=== PATIENT | female | born 1965 | race Caucasian/White ===

== ENCOUNTER 2024-06-05 12:26 | Day surgery (SDC) | payer MEDICARE, BC ==
[~2024-06-05] VITALS: Ht 147.3 cm; Wt 46.6 kg
[~2024-06-05 12:26] MED LIST: COZAAR100 MG PO; LOPRESSOR100 MG PO; LR 1,000 ML IV SCH; Ondansetron 4 MG/2 ML VIAL IV PRN; PRIL40 PO
[2024-06-05 13:14] VITALS: BP 190/92; PULSE 88; TEMP 98.2
[2024-06-05] MEDS ORDERED: Lidocaine PF 2% (20 MG/ML) 5 ML VIAL ONE (13:52)
[2024-06-05 14:45] VITALS: BP 128/61; PULSE 59; TEMP 97.5
[2024-06-05 15:00] VITALS: BP 137/75; PULSE 65; TEMP 97.4
[2024-06-05 15:15] VITALS: BP 137/76; PULSE 67; TEMP 97.4
--- NOTE | 2024-06-05 15:41 | NUR ---
1445- PT RETURNS FROM ENDO PROCEDURE VIA CART AND RN ASSIST TO GI [facility] 4. PT AMBULATES FROM THE CART OT RECLINER WITH RN ASSIST. MONITORS ON AND ALARMS SET. CALL LIGHT WITHIN REACH. REPORT RECIEVED FROM ENDO RN. PT SLIGHTLY LETHARGIC. VS OBTAINED. DENIES NAUSEA OR PAIN. REQUESTING APPLE JUICE TO DRINK. 1500- PT LESS LETHARGIC. EATING AND DRINKING WELL. NO COMPLICATIONS NOTED. 1522- PT IV REMOVED. 1535- DISCHARGE INSTRUCTIONS GIVEN TO PT. ALL QUESTIONS ANSWERED IN FULL. 1540- PT TRANSFERRED OUT OF [facility] VIA WHEELCHAIR TO PRIVATE VEHICLE DRIVEN BY PT MOTHER.
== END 2024-06-05 15:40 ==
LOC: SDCO 12:26
DX: K22.2 Esophageal obstruction (principal); K22.70 Barrett's esophagus without dysplasia; K44.9 Diaphragmatic hernia without obstruction or gangrene; K21.9 Gastro-esophageal reflux disease without esophagitis; Z79.899 Other long term (current) drug therapy
CPT/HCPCS: C1726; J2704; J7120

== ENCOUNTER 2024-06-19 13:03 | Day surgery (SDC) | payer MEDICARE, BC ==
[~2024-06-19] VITALS: Ht 149.9 cm; Wt 46.4 kg
[2024-06-19 13:27] VITALS: BP 177/89; PULSE 99; TEMP 97
--- NOTE | 2024-06-19 13:51 | NUR ---
The patient ambulated back to [facility] independently using a steady gait and appeared to tolerate the activity well. Vital signs obtained. Consent signed. 20G IV started in right hand with one stick, LR infusing without difficulty. Assessment completed. Home medications reconcilled. Mother at bedside. Warm blankets provided. Denies any further needs at this time.
[2024-06-19] MEDS ORDERED: Lidocaine PF 2% (20 MG/ML) 5 ML VIAL ONE (14:18)
[2024-06-19] MEDS ORDERED: Triamcinolone 40 MG/ML 1 ML VIAL IJ ONE (14:35)
[2024-06-19 14:55] VITALS: BP 134/57; PULSE 83; TEMP 97.1
[2024-06-19 15:10] VITALS: BP 124/74; PULSE 72
--- NOTE | 2024-06-19 15:36 | NUR ---
1455- Pt returns from procedure to [facility] bay 5, via cart. Assisted to recliner chair with 2 staff, gait steady. VSS, monitors applied. IV fluids infusing through right hand without issue. Family at bedside. Report received from THERESA Agrawal. Water and crackers given per request. 1510- Discharge instructions and education given to patient and mother. Questions answered 1514- Pt up and getting dressed. IV site removed. 1520- Dr. Blair in room to speak with patient and family. 1535- Pt discharges to mothers vehicle via w/c, escorted by THERESA Agrawal. Denies any compalints.
== END 2024-06-19 15:35 | disposition home or self-care (01) ==
LOC: SDCO 13:03
DX: K22.2 Esophageal obstruction (principal); K44.9 Diaphragmatic hernia without obstruction or gangrene; Z79.899 Other long term (current) drug therapy
CPT/HCPCS: C1726; J2704; J3301; J7120

== ENCOUNTER 2024-07-24 12:39 | Day surgery (SDC) | payer MEDICARE, BC ==
[~2024-07-24] VITALS: Ht 147.3 cm; Wt 47.5 kg
[2024-07-24 13:24] VITALS: BP 190/93; PULSE 93; TEMP 98.3
[2024-07-24] MEDS ORDERED: Lidocaine PF 2% (20 MG/ML) 5 ML VIAL ONE (13:53)
[2024-07-24 14:30] VITALS: BP 1551/69; PULSE 84; TEMP 98.1
[2024-07-24 14:45] VITALS: BP 146/68; PULSE 76
--- NOTE | 2024-07-24 15:07 | NUR ---
1430 RETURNS TO ROOM 3 PER CART. AWAKE, ALERT. RESP UNLABORED. AMBULATES TO RECLINER WITH STANDBY ASSIST. DENIES DISCOMFORT OR DYSPHAGIA. VITAL SIGNS OBTAINED. CALL LIGHT AT SIDE. MOTHER IN ROOM. 1445 TOLERATES PO JUICE AND SALTINE CRACKERS WITHOUT NAUSEA. SWALLOWS WITHOUT DIFFICULTY. DISCHARGE INSTRUCTIONS REVIEWED. PATIENT AND MOTHER VERBALIZE UNDERSTANDING. COPY PROVIDED IN DISCHARGE FOLDER. 0605 DR BARTLETT HERE TO VISIT WITH PATIENT.
== END 2024-07-24 15:07 | disposition home or self-care (01) ==
LOC: SDCO 12:39
DX: K22.2 Esophageal obstruction (principal); K21.00 Gastro-esophageal reflux disease with esophagitis, without bleeding; K22.70 Barrett's esophagus without dysplasia
CPT/HCPCS: C1726; J2704; J7120